=== PATIENT | female | born 1960 | race Caucasian/White ===

== ENCOUNTER → 2018-01-20 08:22 | Outpatient (CLI) | payer BC, SELFPAY ==
[2018-01-20 13:35] LABS: Alanine Aminotransferase 34 U/L (12-78); Albumin Level 3.9 gm/dL (3.4-5.0); Albumin/Globulin Ratio 1.3 (1.1-1.8); Alkaline Phosphatase 105 U/L (46-116); Anion Gap 13.3 mEq/L (5-15); Aspartate Amino Transferase 11 U/L (15-37); Bilirubin,Total 0.2 mg/dL (0.2-1.0); Blood Urea Nitrogen 16 mg/dL (7-18); Carbon Dioxide 28 mmol/L (21.0-32.0); Chloride 104 mmol/L (98-107); Chol/HDL Ratio 4.3 (1-3.5); Cholesterol 181 mg/dL (140-200); Creatinine,Serum 0.83 mg/dL (0.55-1.02); Estimated Glomerular Filt Rate 71 ml/min (>60); GFR (African American) 86 ML/MIN (>60); Globulin 2.9 gm/dl (1.3-3.2); Glucose 92 mg/dL (74-106); HDL Cholesterol 42 mg/dL (29-89); LDL Cholesterol 69 mg/dL (0-130); Potassium 4.3 mmoL/L (3.5-5.1); Sodium 141 mmol/L (136-145); Total Protein,Serum 6.8 gm/dL (6.4-8.2); Triglycerides 348 mg/dL (30-200); VLDL Cholesterol 70 mg/dL (0-40)
== END ==
PROVIDERS: PCP Nurse Practitioner Family; Visit Provider Nurse Practitioner Family
DX: E78.5 Hyperlipidemia, unspecified (principal)
CPT/HCPCS: 36415; 80053; 80061

== ENCOUNTER → 2018-12-02 08:20 | Outpatient (CLI) | payer BC, SELFPAY ==
[2018-12-02 14:11] LABS: Basophils % 0.6 % (0.1-2.0); Eosinophils # 0.2 K/mm3 (0.0-0.4); Eosinophils % 3.9 % (0.1-12.0); Hematocrit 39.8 % (37.0-47.0); Hemoglobin 12.6 g/dL (12.2-16.2); Lymphocytes # 2.5 K/mm3 (0.7-4.5); Lymphocytes % 40.3 % (10-50); Mean Corpuscular HGB Conc 31.7 g/dL (31.8-35.4); Mean Corpuscular Volume 94.8 fl (81-99); Mean Platelet Volume 7.4 fl (7.4-10.4); Monocytes # 0.3 K/mm3 (0.1-1.0); Monocytes % 4.9 % (1.7-9.3); Neutrophils # 3.1 K/mm3 (1.8-7.8); Neutrophils % 50.3 % (37.0-80.0); Platelet Count 343 K/mm3 (142-424); Red Cell Distribution Width 13.9 % (11.5-17.5); White Blood Count 6.1 K/mm3 (4.8-10.8)
[2018-12-02 14:29] LABS: Alanine Aminotransferase 33 U/L (12-78); Albumin Level 3.5 gm/dL (3.4-5.0); Albumin/Globulin Ratio 1.2 (1.1-1.8); Alkaline Phosphatase 103 U/L (46-116); Anion Gap 14.6 mEq/L (5-15); Aspartate Amino Transferase 16 U/L (15-37); Bilirubin,Total 0.3 mg/dL (0.2-1.0); Blood Urea Nitrogen 17 mg/dL (7-18); Calcium 8.7 mg/dL (8.5-10.1); Carbon Dioxide 27 mmol/L (21.0-32.0); Chloride 105 mmol/L (98-107); Cholesterol 200 mg/dL (140-200); Creatinine,Serum 0.84 mg/dL (0.55-1.02); Estimated Glomerular Filt Rate 70 ml/min (>60); GFR (African American) 85 ML/MIN (>60); Globulin 2.9 gm/dl (1.3-3.2); Glucose 97 mg/dL (74-106); HDL Cholesterol 40 mg/dL (29-89); LDL Cholesterol 97 mg/dL (0-130); Potassium 4.6 mmoL/L (3.5-5.1); Sodium 142 mmol/L (136-145); Thyroid Stimulating Hormone 3.14 uIU/ml (0.358-3.740); Total Protein,Serum 6.4 gm/dL (6.4-8.2); Triglycerides 317 mg/dL (30-200); VLDL Cholesterol 63 mg/dL (0-40)
[2018-12-03 17:20] LABS: Vitamin B12 793 pg/mL (232-1245)
== END ==
PROVIDERS: PCP Nurse Practitioner Family; Visit Provider Nurse Practitioner Family
DX: R42 Dizziness and giddiness (principal); E78.2 Mixed hyperlipidemia
CPT/HCPCS: 36415; 80053; 80061; 82607; 84443; 85025

== ENCOUNTER 2019-03-17 22:03 | Emergency (ER) | payer BC, SELFPAY ==
[2019-03-17 22:13] VITALS: BP 155/82; PULSE 87; RESP 18; TEMP 36.4; O2SAT 98; BMI 35.6
[2019-03-17 22:21] VITALS: BP 155/82; PULSE 82; RESP 18; TEMP 36.9; O2SAT 98; BMI 31.7
--- NOTE | 2019-03-17 22:33 | HMH.EDUROGF ---
ED Disposition Clinical Impression: Urinary tract infection Qualifiers: Urinary tract infection type: acute cystitis Hematuria presence: without hematuria Qualified Code(s): N30.00 - Acute cystitis without hematuria Disposition: Home, Self-Care Condition on Discharge: Good Instructions: DI for Urinary Tract Infection (UTI) Additional Instructions: fluids and call pcp for culture results Prescriptions: levoFLOXacin [Levaquin 500mg tab] 500 mg PO DAILY #7 tab Phenazopyridine HCl [Pyridium 200mg Tablet] 200 pow PO TID #6 tab Referrals: Arnoldo High MD [Primary Care Provider] - - Critical Care Critical Care Time: No Attestation: On 03/17/19, the high probability of a clinically significant, sudden or life threatening deterioration of the following system(s) required my full and direct attention, intervention and personal management. The time I documented below is in addition to time spent performing reported procedures but includes the following listed in this critical care notation. Medical Decision Making - Medical Records Medical records reviewed: Yes: I reviewed the patient's medical records. - Jhonny Inquiry Pt receiving controlled substance: No Vital Signs: 03/17/19 22:13 03/17/19 22:21 Temperature 97.6 F 98.5 F Temperature Source Oral Oral Pulse Rate [Brachial] 87 82 Respiratory Rate 18 18 Blood Pressure [Right Arm] 155/82 H 155/82 H Blood Pressure Mean [Right Arm] 106 106 Blood Pressure Source [Right Arm] Automatic Cuff Automatic Cuff Blood Pressure Position [Right Arm] Supine Sitting 02 Sat by Pulse Oximetry 98 98 Oxygen Delivery Method Room Air Room Air - Lab Data Lab results reviewed: Yes: I reviewed the patient's lab results. Lab Results 03/17/19 22:10: Urine Color [place], Urine Appearance Clear, Urine pH 6.0, Ur Specific [place] 1.015, Urine Protein 3+, Urine Glucose (UA) Trace, Urine Ketones Negative, Urine Blood 3+, Urine Nitrate Positive, Urine Bilirubin Negative, Urine Urobilinogen 2.0, Ur Leukocyte Esterase 2+ A, Urine RBC 3-5, Urine WBC 3-5, Ur Squamous Epith Cells Occasional, Urine Bacteria Trace Orders (Tests/Meds): ORDERS Category Date Time Status Urine Culture Stat Micro 03/17/19 22:10 Received Female Urogenital HPI - General Chief complaint: Urogenital-Female Stated complaint: UTI Time Seen by Provider: 03/17/19 22:30 Mode of Arrival: Ambulatory Source of Information: Patient, Spouse, Medical Record Limitations: No Limitations Description of Symptoms (Recalled from ER Triage Doc. by RN): c/o burning with urination - History of Present Illness HPI Narrative: acute onset of dysuria and freq w/o hematuria started today Complaint: dysuria Onset (ago): hour(s) Severity: moderate Duration: intermittent Exacerbating factors: urination Urinary Symptoms: dysuria, urgency, frequency : no Associated symptoms: denies other symptoms - Related Data Home Medications Medication Instructions Recorded Confirmed Citalopram Hydrobromide 20 mg .ROUTE DAILY 03/17/19 03/17/19 [Citalopram HBr] Pitavastatin Calcium [Livalo] 1 mg .ROUTE DAILY 03/17/19 03/17/19 Previous Rx's Medication Instructions Recorded Phenazopyridine HCl [Pyridium 200 pow PO TID #6 tab 03/17/19 200mg Tablet] levoFLOXacin [Levaquin 500mg 500 mg PO DAILY #7 tab 03/17/19 tab] Allergies Allergy/AdvReac Type Severity Reaction Status Date / Time SULFA (SULFONAMIDE) Allergy Intermediate I-HIVES Uncoded 11/03/17 14:02 [facility] History - Hepatitis A Screen Drug use history?: No High risk sexual behaviors?: No History of sexually transmitted infection?: No Currently employed?: No Childcare worker?: No Do you have indoor plumbing?: No Do you have electricity?: No Attestation statement:: This patient has been screened for Hepatitis A risk factors. I have reviewed the patient's past medical history: Yes Medical History: Denies:: Cancer, Diab
[2019-03-17 22:34] LABS: Microscopic, Urine URINE MICROSCOPIC (MICROSCOPIC)
[2019-03-17 22:36] LABS: Appearance,Urine CLEAR (Clear); Bilirubin,Urine Negative (Negative); Blood, Urine 3+ (Negative); Color,Urine ORANGE (Yellow); Glucose,Urine (UA) TRACE (Negative); Ketones,Urine Negative (Negative); Leukocyte Esterase,Urine 2+ (Negative); Nitrate,Urine POSITIVE (Negative); Protein,Urine 3+ (Negative); Specific Gravity, Urine 1.015 (1.005-1.030)
[2019-03-17 22:52] LABS: Bacteria,Urine Trace /lpf; Squamous Epithelial Cell,Urine Occasional #/hpf (0-5)
[2019-03-17 23:24] VITALS: BP 132/76; PULSE 85; RESP 16; TEMP 36.8; O2SAT 98
== END 2019-03-17 23:25 | disposition home or self-care (01) ==
PROVIDERS: Emergency Provider Emergency Medicine; PCP Internal Medicine Adolescent Medicine
DX: N30.00 Acute cystitis without hematuria (principal); R30.0 Dysuria; Z79.899 Other long term (current) drug therapy; Z88.2 Allergy status to sulfonamides
CPT/HCPCS: 81001; 87086; 99282

== ENCOUNTER → 2019-07-28 08:02 | Outpatient (CLI) | payer BC, SELFPAY ==
[2019-07-28 13:59] LABS: Alanine Aminotransferase 33 U/L (12-78); Albumin Level 3.7 gm/dL (3.4-5.0); Albumin/Globulin Ratio 1.2 (1.1-1.8); Alkaline Phosphatase 95 U/L (46-116); Anion Gap 15.8 mEq/L (5-15); Aspartate Amino Transferase 16 U/L (15-37); Bilirubin,Total 0.2 mg/dL (0.2-1.0); Blood Urea Nitrogen 19 mg/dL (7-18); Calcium 9.5 mg/dL (8.5-10.1); Carbon Dioxide 27 mmol/L (21.0-32.0); Chloride 105 mmol/L (98-107); Chol/HDL Ratio 4.9 (1-3.5); Cholesterol 190 mg/dL (140-200); Creatinine,Serum 0.86 mg/dL (0.55-1.02); Estimated Glomerular Filt Rate 68 ml/min (>60); GFR (African American) 82 ML/MIN (>60); Glucose 91 mg/dL (74-106); HDL Cholesterol 39 mg/dL (29-89); LDL Cholesterol 97 mg/dL (0-130); Potassium 4.8 mmoL/L (3.5-5.1); Sodium 143 mmol/L (136-145); Total Protein,Serum 6.7 gm/dL (6.4-8.2); Triglycerides 272 mg/dL (30-200); VLDL Cholesterol 54 mg/dL (0-40)
== END ==
PROVIDERS: PCP Nurse Practitioner Family; Visit Provider Nurse Practitioner Family
DX: E78.2 Mixed hyperlipidemia (principal)
CPT/HCPCS: 36415; 80053; 80061

== ENCOUNTER → 2019-11-25 10:47 | Outpatient (CLI) | payer BC, SELFPAY ==
[2019-11-25 13:57] LABS: Alanine Aminotransferase 23 U/L (12-78); Albumin Level 3.8 gm/dL (3.4-5.0); Albumin/Globulin Ratio 1.5 (1.1-1.8); Alkaline Phosphatase 68 U/L (46-116); Anion Gap 14.5 mEq/L (5-15); Aspartate Amino Transferase 9 U/L (15-37); Bilirubin,Total 0.2 mg/dL (0.2-1.0); Blood Urea Nitrogen 21 mg/dL (7-18); Calcium 8.8 mg/dL (8.5-10.1); Carbon Dioxide 27 mmol/L (21.0-32.0); Chloride 106 mmol/L (98-107); Chol/HDL Ratio 4.4 (1-3.5); Cholesterol 203 mg/dL (140-200); Creatine Kinase 119 U/L (26-192); Creatinine,Serum 0.87 mg/dL (0.55-1.02); Estimated Glomerular Filt Rate 67 ml/min (>60); GFR (African American) 81 ML/MIN (>60); Globulin 2.5 gm/dl (1.3-3.2); Glucose 85 mg/dL (74-106); HDL Cholesterol 46 mg/dL (29-89); LDL Cholesterol 132 mg/dL (0-130); Potassium 4.5 mmoL/L (3.5-5.1); Sodium 143 mmol/L (136-145); Total Protein,Serum 6.3 gm/dL (6.4-8.2); Triglycerides 123 mg/dL (30-200); VLDL Cholesterol 25 mg/dL (0-40)
== END ==
PROVIDERS: Visit Provider Nurse Practitioner Family
DX: E78.2 Mixed hyperlipidemia (principal)
CPT/HCPCS: 36415; 80053; 80061; 82550

== ENCOUNTER → 2020-04-20 15:36 | Outpatient (CLI) | payer BC, SELFPAY ==
[2020-04-20 16:59] LABS: Chloride 106 mmol/L (98-107)
[2020-04-20 17:00] LABS: Potassium 4.2 mmoL/L (3.5-5.1); Sodium 140 mmol/L (136-145)
[2020-04-20 17:02] LABS: Alanine Aminotransferase 15 U/L (12-78); Aspartate Amino Transferase 19 U/L (14-36); Blood Urea Nitrogen 18 mg/dl (7-17); Estimated Glomerular Filt Rate 74 ml/min (>60); GFR (African American) 89 ML/MIN (>60)
[2020-04-20 17:03] LABS: Albumin Level 4.1 g/dl (3.5-5.0); Albumin/Globulin Ratio 1.9 (1.1-1.8); Alkaline Phosphatase 78 U/L (38-126); Anion Gap 10.2 mEq/L (5-15); Bilirubin,Total 0.4 mg/dl (0.2-1.3); Calcium 9.1 mg/dl (8.4-10.2); Carbon Dioxide 28 mmol/L (22.0-30.0); Chol/HDL Ratio 4.3 (1-3.5); Cholesterol 199 mg/dl (140-200); Globulin 2.2 g/dL (1.3-3.2); Glucose 97 mg/dl (74-100); HDL Cholesterol 46 mg/dl (40-60); Total Protein,Serum 6.3 g/dl (6.3-8.2); Triglycerides 241 mg/dl (30-150); VLDL Cholesterol 48 mg/dL (0-40)
== END ==
PROVIDERS: Visit Provider Nurse Practitioner Family
DX: E78.2 Mixed hyperlipidemia (principal)
CPT/HCPCS: 36415; 80053; 80061

== ENCOUNTER → 2021-04-01 11:45 | Outpatient (CLI) | payer BC, SELFPAY | PROVIDERS: Visit Provider Internal Medicine Adolescent Medicine | DX: R30.0 Dysuria (principal) | CPT/HCPCS: 87086 ==

== ENCOUNTER → 2021-11-27 08:02 | Outpatient (CLI) | payer BC, SELFPAY ==
[2021-11-27 14:12] LABS: Basophils # 0.1 K/mm3 (0-0.2); Eosinophils # 0.1 K/mm3 (0.0-0.4); Eosinophils % 2.1 % (0.1-12.0); Hematocrit 39.9 % (37.0-47.0); Hemoglobin 12.9 g/dL (12.2-16.2); Lymphocytes # 2.2 K/mm3 (0.7-4.5); Lymphocytes % 43.9 % (10-50); Mean Corpuscular HGB Conc 32.3 g/dL (31.8-35.4); Mean Corpuscular Hemoglobin 30.9 pg (27.0-31.2); Mean Corpuscular Volume 95.6 fl (81-99); Mean Platelet Volume 8.2 fl (7.4-10.4); Monocytes # 0.3 K/mm3 (0.1-1.0); Monocytes % 5.6 % (1.7-9.3); Neutrophils # 2.4 K/mm3 (1.8-7.8); Neutrophils % 47.5 % (37.0-80.0); Platelet Count 348 K/mm3 (142-424); Red Blood Count 4.17 M/mm3 (4.20-5.40); Red Cell Distribution Width 13.4 % (11.5-17.5); White Blood Count 5.1 K/mm3 (4.8-10.8)
[2021-11-27 14:23] LABS: Alanine Aminotransferase 18 U/L (12-78); Albumin Level 4.3 g/dl (3.5-5.0); Alkaline Phosphatase 67 U/L (38-126); Anion Gap 9.6 mEq/L (5-15); Aspartate Amino Transferase 23 U/L (14-36); Bilirubin,Total 0.5 mg/dl (0.2-1.3); Blood Urea Nitrogen 21 mg/dl (7-17); Calcium 9.4 mg/dl (8.4-10.2); Carbon Dioxide 31 mmol/L (22.0-30.0); Chloride 102 mmol/L (98-107); Chol/HDL Ratio 5.6 (1-3.5); Cholesterol 228 mg/dl (140-200); Estimated Glomerular Filt Rate 73 ml/min (>60); GFR (African American) 89 ML/MIN (>60); Globulin 2.1 g/dL (1.3-3.2); Glucose 80 mg/dl (74-100); HDL Cholesterol 41 mg/dl (40-60); Potassium 4.6 mmoL/L (3.5-5.1); Sodium 138 mmol/L (136-145); Total Protein,Serum 6.4 g/dl (6.3-8.2); Triglycerides 160 mg/dl (30-150); VLDL Cholesterol 32 mg/dL (0-40)
[2021-11-27 14:39] LABS: 25-OH Vitamin D, Total 24.3 ng/mL (30-100)
== END ==
PROVIDERS: Visit Provider Nurse Practitioner Family
DX: Z00.00 Encounter for general adult medical examination without abnormal findings (principal); E78.2 Mixed hyperlipidemia; M85.80 Other specified disorders of bone density and structure, unspecified site; E55.9 Vitamin D deficiency, unspecified
CPT/HCPCS: 36415; 80053; 80061; 82306; 85025

== ENCOUNTER 2023-09-23 15:50 | Emergency (ER) | payer BC, SELFPAY ==
[2023-09-23] VITALS (8 sets, daily range): BP systolic 141–165; BP diastolic 86–93; PULSE 84–105; RESP 16–20; TEMP 36.7–36.9; O2SAT 96–100; BMI 25.0
--- NOTE | 2023-09-23 16:11 | PC.NURSE ---
called rad for head ct stroke protocol
--- NOTE | 2023-09-23 16:15 | CT_ITS ---
PROCEDURE INFORMATION: Exam: CTA Neck With Contrast Exam date and time: 09/23/2023 5:30 PM Age: 62 years old Clinical indication: Stroke-like symptoms; Altered mental status/memory loss; Additional info: Confusion, lkn 1300 TECHNIQUE: Imaging protocol: Computed tomographic angiography of the neck with contrast. Exam focused on the cervical segments of the vasculature. 3D rendering (Not supervised by radiologist): MIP and/or 3D reconstructed images were created by the technologist. Radiation optimization: All CT scans at this facility use at least one of these dose optimization techniques: automated exposure control; mA and/or kV adjustment per patient size (includes targeted exams where dose is matched to clinical indication); or iterative reconstruction. Contrast material: ISOVUE 370; Contrast volume: 100 ml; Contrast route: INTRAVENOUS (IV); REPORTING DATA: Count of CT and Cardiac NM exams in prior 12 months: This patient has received 0 known CTs and 0 known cardiac nuclear medicine studies in the 12 months prior to the current study. COMPARISON: No relevant prior studies available. FINDINGS: Right common carotid artery: No stenosis. No dissection or occlusion. Right internal carotid artery: No stenosis of the extracranial segment. No dissection or occlusion. Right external carotid artery: No occlusion or stenosis of the origin. Left common carotid artery: No stenosis. No dissection or occlusion. Left internal carotid artery: Trace proximal left ICA atherosclerosis does not contribute to stenosis. Left external carotid artery: No occlusion or stenosis of the origin. Right vertebral artery: The right vertebral artery is developmentally hypoplastic, patent. Left vertebral artery: The left vertebral artery is dominant, patent. Soft tissues: Normal. No significant soft tissue swelling. Bones/joints: The cervical spine demonstrates degenerative changes, for example severe degenerative changes at C1-C2 and moderate to marked degenerative disc disease with uncovertebral arthropathy at C5-C6 and C6-C7. IMPRESSION: 1. No acute vascular findings in the neck. 2. 0% right ICA stenosis. 3. 0% left ICA stenosis. 4. The vertebral arteries are patent without stenoses. REFERENCES: NASCET CRITERIA. The degree of stenosis in the cervical segment of the internal carotid artery is based on NASCET criteria. Normal is no stenosis. Mild is less than 50% stenosis. Moderate is 50-69% stenosis. Severe is 70% to 99% stenosis. Total occlusion is no detectable patent lumen.
--- NOTE | 2023-09-23 16:20 | PC.NURSE ---
Pt gone to RAD via wheelchair
--- NOTE | 2023-09-23 16:20 | PC.NURSE ---
Notified RT of VBG
[2023-09-23 16:21] LABS: Microscopic, Urine URINE MICROSCOPIC (MICROSCOPIC)
[2023-09-23 16:23] LABS: Appearance,Urine CLEAR (Clear); Bilirubin,Urine Negative (Negative); Blood, Urine Negative (Negative); Color,Urine YELLOW (Yellow); Glucose,Urine (UA) Negative (Negative); Ketones,Urine Negative (Negative); Leukocyte Esterase,Urine Negative (Negative); Nitrate,Urine Negative (Negative); Protein,Urine Negative (Negative); Urobilinogen,Urine 0.2 EU/dl (0.2)
[2023-09-23 16:23] LABS: Basophils % 0.3 % (0.1-2.0); Eosinophils # 0.1 K/mm3 (0.0-0.4); Eosinophils % 1.2 % (0.1-12.0); Hematocrit 43.7 % (37.0-47.0); Hemoglobin 14.8 g/dL (12.2-16.2); Lymphocytes # 3.9 K/mm3 (0.7-4.5); Lymphocytes % 35.4 % (10-50); Mean Corpuscular HGB Conc 33.8 g/dL (31.8-35.4); Mean Corpuscular Hemoglobin 32.1 pg (27.0-31.2); Mean Corpuscular Volume 94.9 fl (81-99); Monocytes # 0.4 K/mm3 (0.1-1.0); Monocytes % 3.9 % (1.7-9.3); Neutrophils # 6.4 K/mm3 (1.8-7.8); Neutrophils % 59.2 % (37.0-80.0); Platelet Count 334 K/mm3 (142-424); Red Cell Distribution Width 13.2 % (11.5-17.5); White Blood Count 10.9 K/mm3 (4.8-10.8)
[2023-09-23 16:24] LABS: Chloride 103 mmol/L (98-107); Sodium 142 mmol/L (136-145)
[2023-09-23 16:27] LABS: Alanine Aminotransferase 26 U/L (12-78); Albumin/Globulin Ratio 1.6 (1.1-1.8); Alkaline Phosphatase 90 U/L (38-126); Aspartate Amino Transferase 35 U/L (14-36); Bilirubin,Total 0.2 mg/dl (0.2-1.3); Blood Urea Nitrogen 15 mg/dl (7-17); Carbon Dioxide 29 mmol/L (22.0-30.0); Creatinine Clearance Estimated 63 mL/min (50-200); Estimated Glomerular Filt Rate 73 ml/min (>60); GFR (African American) 88 ML/MIN (>60); Globulin 3.1 g/dL (1.3-3.2); Total Protein,Serum 8.1 g/dl (6.3-8.2)
[2023-09-23 16:28] LABS: Calcium 9.3 mg/dl (8.4-10.2); Glucose 102 mg/dl (74-100)
[2023-09-23 16:29] LABS: INR 0.95 (0.9-1.1); Prothrombin Time 10.3 seconds (10.1-12.5)
--- NOTE | 2023-09-23 16:35 | PC.NURSE ---
Pt returned from RAD
--- NOTE | 2023-09-23 16:36 | ECG_ITS ---
APPROVED REPORT Exam: Resting ECG HR:93 bpm ECG Measurements Heart Rate 93 AXES WI 147 P 58 QRSd 86 QRS 47 QT 374 T 53 QTc 425 Conclusion SINUS RHYTHM NORMAL ECG UNCONFIRMED REPORT Electronically signed by : Arnoldo High MD 09/24/2023 17:32:06
[2023-09-23 16:38] LABS: Bacteria,Urine Trace /lpf
[2023-09-23 16:40] LABS: Troponin I < 0.01 ng/ml (0.00-0.034)
[2023-09-23 16:45] LABS: T4 (Thyroxine) 9.5 ug/dl (5.53-11.0)
--- NOTE | 2023-09-23 16:49 | PC.NURSE ---
called [facility] for stroke team
[2023-09-23 16:51] LABS: VBG Base Excess -0.9 mmol/L (-2.4-2.3); VBG HCO3 23.8 mmol/L (23-30); VBG Oxygen Saturation 77.9 % (50-70); VBG PCO2 38.7 mmol/L (35-51); VBG PH 7.41 mmol/L (7.31-7.41); VBG PO2 40.2 mmol/L (28-40); VBG Total CO2 24.9 mmol/L (23-27)
--- NOTE | 2023-09-23 16:51 | MR_ITS ---
PROCEDURE INFORMATION: Exam: MR Head Without Contrast Exam date and time: 09/23/2023 5:16 PM Age: 62 years old Clinical indication: Other: Confusion; Additional info: New onset confusion TECHNIQUE: Imaging protocol: Magnetic resonance imaging of the head without contrast. COMPARISON: No relevant prior studies available. FINDINGS: Brain: No acute infarct identified on the diffusion-weighted imaging. The T2 weighted imaging demonstrates a few scattered foci of increased signal intensity in the deep and subcortical white matter as well as chris likely representing trace chronic small-vessel ischemic change. The brain demonstrates mild, generalized volume loss. Cerebral ventricles: The ventricles are mildly enlarged in keeping with volume loss. Pituitary gland and sella: There is a partially empty sella turcica. Bones/joints: Unremarkable. Paranasal sinuses: Normal as visualized. No acute sinusitis. Mastoid air cells: Normal as visualized. No mastoid effusion. Orbital cavities: Unremarkable. Soft tissues: Unremarkable. IMPRESSION: No evidence of acute infarct.
--- NOTE | 2023-09-23 16:57 | HMH.EDGENADL ---
Discharge Plan Disposition Patient Disposition: Home, Self-Care Condition: Good Prescriptions Prescriptions: New aspirin 81 mg tablet,delayed release (DR/EC) 81 mg PO DAILY Qty: 30 0RF No Action pitavastatin calcium 1 MG tablet 1 mg .Route DAILY citalopram 20 MG tablet 20 mg .Route DAILY levofloxacin 500 MG tablet 500 mg PO DAILY Qty: 7 0RF phenazopyridine 200 MG tablet 200 pow PO TID Qty: 6 0RF Referrals Follow up/Referrals: Lizeth Gastelum MD [Staff Physician] - See instructions Uriah Cole MD [Staff Physician] - See instructions Mahogany Nielson APRN [Primary Care Provider] - See instructions Activity Restrictions/Add. Instructions Additional Instructions/Restrictions: You were evaluated in the emergency department today. Please leaf size picker your prescription for aspirin and take it daily as well as your statin that you already take. Follow-up with your primary care provider over the next 3 days. Also recommend follow-up with cardiology for further evaluation and management, as this may have been a TIA or mini stroke. We are providing you with information for neurology as well. Return to the emergency department for new or worsening symptoms. Clinical Impressions Clinical Impression: Transient alteration of awareness Instructions Patient Instructions: DI for Transient Ischemic Attack Discharge ED Provider: Laurie Guzmán General Adult HPI General Chief complaint: Dizziness Stated complaint: CONFUSED, WAS DIZZY Time Seen by Provider: 09/23/23 16:07 Mode of Arrival: Ambulatory Source of Information: Patient and Spouse Limitations: No Limitations Description of Symptoms (Recalled from ER Triage Doc. by RN): Patient states she was working out in the yard when she suddenly became confused. states the patient called him and had him come home and that she asked the same questions over and over again. states the patient had no muscle weakness, no slurred speech, and no facial droop. Patient states she did feel a little dizzy at the time of the event. Per this started at 1pm. Patient states that she feels better and is just having memory problems now. History of Present Illness HPI narrative: This patient is a 62-year-old female with a history of depression and hyperlipidemia presenting to the emergency department for evaluation with concern for confusion. Last known normal was 1 PM. She states that she was raking her yard when suddenly she forgot why she was outside and became extremely confused. She called her , who noted that she was confused and brought her to the emergency department. She denies any headache, vision changes, unilateral weakness, numbness, tingling, speech difficulties, or other concerns. She answers all questions appropriately aside from time/month. notes no speech difficulties or other issues. She denies this ever happening in the past. She denies any recent medication changes. She states that she was well prior to going outside and waking up the leaves, and she has been eating and drinking normally today. No other concerns noted at this time. Related Data Home Medications Medication Instructions Recorded Confirmed citalopram 20 mg tablet 20 mg .Route DAILY Depression 03/17/19 03/17/19 pitavastatin calcium 1 mg tablet 1 mg .Route DAILY Depression 03/17/19 03/17/19 Previous Rx's Medication Instructions Recorded levofloxacin 500 mg tablet 500 mg PO DAILY #7 tabs 03/17/19 phenazopyridine 200 mg tablet 200 pow PO TID #6 tabs 03/17/19 aspirin 81 mg tablet,delayed 81 mg PO DAILY #30 tabs 09/23/23 release Allergies Allergy/AdvReac Type Severity Reaction Status Date / Time SULFA (SULFONAMIDE) Allergy Intermediate I-HIVES Uncoded 11/03/17 14:02 [facility] Disclaimer: The information contained in this section may have been updated after the patient was seen, as this information can be updated by other users.
[2023-09-23 16:58] LABS: Thyroid Stimulating Hormone 2.17 uIU/mL (0.465-4.68)
[2023-09-23 17:04] LABS: Ammonia < 9 umol/L (9-30)
--- NOTE | 2023-09-23 17:15 | PC.NURSE ---
pt gone to MRI
--- NOTE | 2023-09-23 17:42 | PC.NURSE ---
pt in MRI, family at bs, water given to family
--- NOTE | 2023-09-23 17:57 | PC.NURSE ---
pt back to room from MRI
--- NOTE | 2023-09-23 18:26 | PC.NURSE ---
[facility] called there is no bed available at this time they will update towards morning.
[2023-09-23 18:37] LABS: POC Glucose,Bedside 90 (70-110)
--- NOTE | 2023-09-24 04:14 | PC.NURSE ---
Spoke to [facility] with [facility] clinical command. Patient was still on their wait list for transfer. Updated Rosalinda that patient no longer needed to be on waiting list
== END 2023-09-23 19:10 | disposition home or self-care (01) ==
PROVIDERS: Emergency Provider Emergency Medicine; PCP Nurse Practitioner Family
DX: R40.4 Transient alteration of awareness (principal); R42 Dizziness and giddiness; E78.5 Hyperlipidemia, unspecified
CPT/HCPCS: 70450; 70496; 70498; 70551; 80053; 81001; 82140; 82803; 82962; 84436; 84443; 84484; 85025; 85610; 93005; 99285; Q9967

== ENCOUNTER → 2023-09-28 09:04 | Outpatient (CLI) | payer BC, SELFPAY | LOC: RT 09:06 | PROVIDERS: PCP Nurse Practitioner Family; Visit Provider Nurse Practitioner Family | DX: G45.9 Transient cerebral ischemic attack, unspecified (principal) | CPT/HCPCS: 93225; 93226 ==

== ENCOUNTER → 2023-10-06 13:58 | Outpatient (CLI) | payer BC, SELFPAY ==
--- NOTE | 2023-10-06 14:06 | CA_ITS ---
APPROVED REPORT EXAM: Comprehensive 2D, Doppler, and color-flow Echocardiogram Chemical Packager: Dana Felton RT(R) Ht: 5 ft 5 in Wt: 191lbs BSA: 1.94 BP: 168/87 mmHg Indications: TIA, hyperlipidemia, ordered as a bubble study secondary to recent TIA. Echo Enhancing Agent Indication: Rule out Shunt Agent(s) / Amount(s) Used: Agitated Saline 15 cc 2D Dimensions LVOT 2.00 cm (M/F) 1.5-2.5 LVEF (Estrada's) 66.50 % F: 54 - 74 LV Volume 91.70 mL F: 46 - 106 LV Volume Index 47.27 mL/m2 F: 29 - 61 LA Volume 45.90 mL LA Volume Index 23.66 mL/m2 (M/F) 16-34 M-Mode Dimensions RVDd 2.93 cm (0.9-2.6) LA Diam 3.39 cm (1.9-4.0) LVDd 3.15 cm (3.5-5.7) Ao Diam 2.67 cm (2.0-3.7) LVDs 2.39 cm (3.5-5.7) IVSd 1.03 cm (0.6-1.1) PWd 0.91 cm (0.6-1.1) EF (Teich) 49.20% FS 24.10% EDV (Teich) 39.40 mL ESV (Teich) 20.00 mL LV Diastology E Decel Time 207.00 (160-240 msec) E/A Ratio 0.9 MED E' 7.00 (< 7 cm/sec) E'/MED E' Ratio 12.64 (>14) LAT E' 9.90 (<10 cm/sec) E/LAT E' Ratio 8.94 (>14) Mitral Valve MV E Max Cash. 88.00 (40-130 cm/s) MV A Velocity 103.00 (40-130 cm/s) E/A Ratio 0.86 MV Decel. Time 207.00 (160-240 ms) MV PHT 61.00 ms Left Ventricle The left ventricle is normal size. The left ventricular systolic function is normal. The left ventricular ejection fraction is within the normal range. There is normal left ventricular wall thickness. There is normal LV segmental wall motion. The left ventricular diastolic function is normal. LVEF is 55%. Right Ventricle The right ventricle is normal size. Atria The left atrium size is normal. The right atrium size is normal. There is no Doppler evidence of interatrial shunt. Administration of agitated saline demonstrates equivocal results due to technically difficult study. Aortic Valve The aortic valve opens well. There is no aortic valvular stenosis. No aortic regurgitation is present. Mitral Valve The mitral valve is normal in structure. No evidence of mitral valve stenosis. There is no mitral valve regurgitation noted. Tricuspid Valve The tricuspid valve leaflets are thin and pliable. Trace tricuspid regurgitation. There is insufficient TR jet to estimate RVSP. Pulmonic Valve The pulmonary valve is normal in structure. Trace pulmonic regurgitation. Great Vessels The aortic root is normal in size. The ascending aorta is normal in size. IVC is normal in size and collapses >50% with inspiration. Pericardium There is no pericardial effusion. Other Information Study Quality: Technically Difficult Conclusion Technically difficult study due to poor accoustic windows. Normal biventricular systolic function. No significant valvular stenosis or regurgitation. No Doppler evidence of interatrial shunt. Administration of agitated saline demonstrates equivocal results due to technically difficult study. In the setting of recent TIA and equivocal agitated saline study results, further evaluation with SUDHIR to rule out interatrial shunt is recommended. Electronically signed by : Dia Bergeron MD 10/16/2023 18:26:51
== END ==
PROVIDERS: PCP Nurse Practitioner Family; Visit Provider Nurse Practitioner Family
DX: G45.9 Transient cerebral ischemic attack, unspecified (principal)
CPT/HCPCS: 93306

== ENCOUNTER 2023-12-16 11:54 | Outpatient (CLI) | payer BC, SELFPAY ==
[2023-12-16 12:30] LABS: Basophils # 0.1 K/mm3 (0-0.2); Basophils % 0.7 % (0.1-2.0); Eosinophils # 0.2 K/mm3 (0.0-0.4); Eosinophils % 2.7 % (0.1-12.0); Hematocrit 36.5 % (37.0-47.0); Hemoglobin 13.8 g/dL (12.2-16.2); Lymphocytes # 2.9 K/mm3 (0.7-4.5); Lymphocytes % 46.1 % (10-50); Mean Corpuscular HGB Conc 37.7 g/dL (31.8-35.4); Mean Corpuscular Hemoglobin 35.5 pg (27.0-31.2); Mean Platelet Volume 7.6 fl (7.4-10.4); Monocytes # 0.5 K/mm3 (0.1-1.0); Monocytes % 7.3 % (1.7-9.3); Neutrophils # 2.7 K/mm3 (1.8-7.8); Neutrophils % 43.3 % (37.0-80.0); Platelet Count 283 K/mm3 (142-424); Red Blood Count 3.88 M/mm3 (4.20-5.40); Red Cell Distribution Width 13.7 % (11.5-17.5); White Blood Count 6.2 K/mm3 (4.8-10.8)
[2023-12-16 13:06] LABS: Alanine Aminotransferase 25 U/L (12-78); Albumin Level 4.2 g/dl (3.5-5.0); Albumin/Globulin Ratio 1.9 (1.1-1.8); Alkaline Phosphatase 88 U/L (38-126); Anion Gap 10.6 mEq/L (5-15); Aspartate Amino Transferase 28 U/L (14-36); Bilirubin,Total 0.3 mg/dl (0.2-1.3); Blood Urea Nitrogen 16 mg/dl (7-17); Calcium 9.4 mg/dl (8.4-10.2); Carbon Dioxide 29 mmol/L (22.0-30.0); Chloride 105 mmol/L (98-107); Chol/HDL Ratio 3.3 (1-3.5); Cholesterol 140 mg/dl (140-200); Estimated Glomerular Filt Rate 85 ml/min (>60); GFR (African American) 103 ML/MIN (>60); Globulin 2.2 g/dL (1.3-3.2); Glucose 91 mg/dl (74-100); HDL Cholesterol 43 mg/dl (40-60); Potassium 4.6 mmoL/L (3.5-5.1); Sodium 140 mmol/L (136-145); Total Protein,Serum 6.4 g/dl (6.3-8.2); Triglycerides 263 mg/dl (30-150); VLDL Cholesterol 53 mg/dL (0-40)
[2023-12-16 13:17] LABS: Direct LDL Cholesterol 55.69 mg/dL (100-129)
== END 2023-12-16 23:59 ==
LOC: LAB 11:55
PROVIDERS: PCP Nurse Practitioner Family; Visit Provider Nurse Practitioner Family
DX: E78.2 Mixed hyperlipidemia (principal); E55.9 Vitamin D deficiency, unspecified; Z79.899 Other long term (current) drug therapy
CPT/HCPCS: 36415; 80053; 80061; 82306; 85025